=== PATIENT | male | born 1955 | race Caucasian/White ===

== ENCOUNTER 2020-11-06 09:17 | Observation (INO) | payer OTHER, SELFPAY ==
[~2020-11-06] VITALS: Ht 180.3 cm; Wt 100.7 kg
[2020-11-06 09:51] LABS: RED BLOOD COUNT 6.27 M/UL (4.20-5.50); WHITE BLOOD COUNT 8.7 K/UL (4.5-11.0)
[2020-11-06 10:27] LABS: BUN/CREATININE RATIO 17 (0-10)
[2020-11-06] MEDS ORDERED: INCRUSE ELLI62.5 MCG INH (13:03)
[2020-11-06] MEDS ORDERED: DEMADEX 20 MG T20 MG PO (13:03)
[2020-11-06] MEDS ORDERED: ENTRESTO 24 MG1 EACH PO (13:03)
[2020-11-06] MEDS ORDERED: PLAVIX 75 MG TA75 MG PO (13:04)
[2020-11-06] MEDS ORDERED: COREG 12.5MG12.5 MG PO (13:04)
[2020-11-06] MEDS ORDERED: TEGRETOL XR200 MG PO ×2 (13:05)
[2020-11-06] MEDS ORDERED: JANTOVEN5 MG PO (13:06)
[2020-11-06] MEDS ORDERED: ATORVASTATIN CA20 MG PO (13:07)
[2020-11-06] MEDS ORDERED: WARFARIN SODIUM5 MG PO (13:07)
[2020-11-06] MEDS ORDERED: [UNRECOGNIZED DRUG - OTHER] PO (13:09)
[2020-11-06] MEDS ORDERED: COZAAR50 MG PO (13:09)
[2020-11-07 06:26] LABS: HEMOGLOBIN 17.3 gm/dl (14.0-17.5); RED BLOOD COUNT 5.81 M/UL (4.20-5.50); WHITE BLOOD COUNT 7.4 K/UL (4.5-11.0)
[2020-11-07 07:02] LABS: BUN/CREATININE RATIO 20 (0-10)
== END 2020-11-07 12:39 | disposition home or self-care (01) ==
LOC: ER1 09:17 → ZEROF 11:47 → M/S 20:05
PROVIDERS: Physician Assistant; Physician Assistant Medical; ADMIT Internal Medicine Infectious Disease
DX: G93.40 Encephalopathy, unspecified (principal); T42.1X5A Adverse effect of iminostilbenes, initial encounter; I25.10 Atherosclerotic heart disease of native coronary artery without angina pectoris; I48.91 Unspecified atrial fibrillation; Z95.810 Presence of automatic (implantable) cardiac defibrillator; I11.0 Hypertensive heart disease with heart failure; I50.22 Chronic systolic (congestive) heart failure; E11.9 Type 2 diabetes mellitus without complications; I25.5 Ischemic cardiomyopathy; E78.5 Hyperlipidemia, unspecified; J60 Coalworker's pneumoconiosis; Z86.73 Personal history of transient ischemic attack (TIA), and cerebral infarction without residual deficits; Z95.5 Presence of coronary angioplasty implant and graft; Z88.2 Allergy status to sulfonamides; Z79.02 Long term (current) use of antithrombotics/antiplatelets; Z79.01 Long term (current) use of anticoagulants; Z79.4 Long term (current) use of insulin; Z79.899 Other long term (current) drug therapy; Z20.822 Contact with and (suspected) exposure to COVID-19
CPT/HCPCS: ECHO; 36415; 36600; 70450; 71045; 80048; 80053; 80156; 80307; 81001; 82140; 82550; 82553; 82803; 82962; 83605; 83735; 83874; 84484; 85025; 85027; 85610; 85730; 87040; 93306; 93880; 96374; 99285; G0378; J1940; U0002

== ENCOUNTER → 2022-03-17 | Outpatient (CLI) | payer OTHER ==
[~2022-03-17] MED LIST: ATORVASTATIN CA20 MG PO; COREG 12.5MG12.5 MG PO; COZAAR50 MG PO; DEMADEX 20 MG T20 MG PO; ENTRESTO 24 MG1 EACH PO; INCRUSE ELLI62.5 MCG INH; JANTOVEN5 MG PO; PLAVIX 75 MG TA75 MG PO; TEGRETOL XR200 MG PO; WARFARIN SODIUM5 MG PO; [UNRECOGNIZED DRUG - OTHER] PO
== END ==
LOC: CT 14:39
DX: I11.0 Hypertensive heart disease with heart failure (principal); I50.9 Heart failure, unspecified; E11.51 Type 2 diabetes mellitus with diabetic peripheral angiopathy without gangrene; E78.00 Pure hypercholesterolemia, unspecified; J44.9 Chronic obstructive pulmonary disease, unspecified; I48.91 Unspecified atrial fibrillation; E78.5 Hyperlipidemia, unspecified; Z86.73 Personal history of transient ischemic attack (TIA), and cerebral infarction without residual deficits
CPT/HCPCS: 36415; 75635; 82565; 84520; Q9967